=== PATIENT | female | born 1960 | race Caucasian/White ===

== ENCOUNTER 2024-06-11 21:12 | Inpatient (IN) ==
[2024-06-11 22:12] LABS: Basophils # (Auto) 0.04 K/mcL (0.00-0.30); Basophils % (Auto) 0.4 % (0.0-2.0); Eosinophils # (Auto) 0.09 K/mcL (0.00-0.70); Eosinophils % (Auto) 0.8 % (0.0-7.0); Hematocrit 42.9 % (34.1-44.9); Hemoglobin 13.8 g/dL (11.2-15.7); Lymphocytes # (Auto) 0.79 K/mcL (1.50-4.80); Lymphocytes % (Auto) 7.3 % (15.5-49.0); Mean Cell Volume 101.9 fL (80.0-100.0); Mean Corpuscular HGB Conc 32.2 g/dL (31.0-36.0); Mean Platelet Volume 9.2 fL (8.8-12.5); Monocytes # (Auto) 1.52 K/mcL (0.10-0.90); Monocytes % (Auto) 14.1 % (1.0-12.0); Platelet Count 189 K/mcL (140-440); RBC 4.21 M/mcL (3.59-5.38); Red Cell Distribution Width 13.8 % (11.5-14.5); WBC 10.8 K/mcL (4.5-11.0)
[2024-06-11] MEDS: HYDROmorphone 0.5 MG/0.5 ML SYRINGE IV PRN (22:13)
[2024-06-11] MEDS: ONDANSETRON 4 MG/2 ML VIAL IV ONE (22:14)
[2024-06-11 22:28] LABS: ALT/SGPT 24 U/L (<40); AST/SGOT 44 U/L (<32); Albumin 3.3 gm/dL (3.2-5.2); Alkaline Phosphatase 136 U/L (39-117); Bilirubin,Total 0.4 mg/dL (0.1-1.0); Blood Urea Nitrogen 10 mg/dL (8-23); Calcium 9.6 mg/dL (8.6-10.4); Carbon Dioxide 14 mmol/L (22-30); Chloride 100 mmol/L (96-108); Globulin 3.3 gm/dL (2.2-3.7); Glomerular Filtration Rate 103; Glucose 63 mg/dL (70-105); Potassium 3.7 mmol/L (3.3-5.1); Sodium 138 mmol/L (133-145)
[2024-06-11] MEDS ORDERED: ONDANSETRON 4 MG/2 ML VIAL IV PRN (23:04)
[2024-06-11] MEDS: ALBUTEROL SULFATE 2.5 MG/3 ML NEBULIZER NEB PRN (23:22)
[2024-06-12] MEDS: oxyCODONE/APAP 5/325MG TABLET PO PRN (02:30)
[2024-06-12] MEDS: HYDROmorphone 0.5 MG/0.5 ML SYRINGE IV PRN ×2 (02:31→10:58)
[2024-06-12] MEDS: 0.9 % SODIUM CHLORIDE 10 ML SYRINGE IV SCH (04:31)
[2024-06-12] MEDS: DOCUSATE SODIUM 100 MG CAPSULE PO SCH (08:38)
[2024-06-12] MEDS ORDERED: HYDROmorphone 0.5 MG/0.5 ML SYRINGE IV PRN (09:03)
[2024-06-12] MEDS: fentaNYL 25 MCG PATCH TOPICAL SCH (10:02)
[2024-06-12] MEDS: OLANZapine 2.5 MG TABLET PO SCH (10:04)
[2024-06-12] MEDS: OMEPRAZOLE 20 MG CAPSULE PO SCH (11:02)
[2024-06-12] MEDS: SODIUM BICARBONATE 650 MG TABLET PO SCH (11:02)
[2024-06-12] MEDS: METHOCARBAMOL 750 MG TABLET PO PRN (13:53)
[2024-06-12] MEDS: HYDROmorphone 2 MG TABLET PO PRN (13:54)
[2024-06-12] MEDS: FLUTICASONE PROPION SALMETEROL INHALATION SCH (16:02)
[2024-06-12] MEDS: 0.9 % SODIUM CHLORIDE 250 ML IV SCH (17:14)
[2024-06-12] MEDS: SENNOSIDES 1 TABLET PO SCH (20:08)
[2024-06-13 06:34] LABS: ALT/SGPT 19 U/L (<40); AST/SGOT 36 U/L (<32); Albumin 3.1 gm/dL (3.2-5.2); Alkaline Phosphatase 133 U/L (39-117); Bilirubin,Direct < 0.2 mg/dL (0-0.3); Bilirubin,Total 0.3 mg/dL (0.1-1.0); Blood Urea Nitrogen 11 mg/dL (8-23); Calcium 9.7 mg/dL (8.6-10.4); Carbon Dioxide 21 mmol/L (22-30); Chloride 105 mmol/L (96-108); Globulin 3.2 gm/dL (2.2-3.7); Glomerular Filtration Rate 103; Glucose 145 mg/dL (70-105); Lactate Dehydrogenase 450 U/L (135-225); Phosphorous 2.4 mg/dL (2.5-4.5); Sodium 142 mmol/L (133-145); Triglycerides 192 mg/dL (<150); Uric Acid 6.1 mg/dL (2.5-8.0)
[2024-06-13] MEDS: LIDOCAINE 4% TOP PATCH TOPICAL SCH (10:14)
[2024-06-13] MEDS: Tiotropium Bromide [Spiriva Respimat] 2.5 mcg/act Inhaler INH SCH (10:25)
[2024-06-13] MEDS ORDERED: HYDROmorphone 0.5 MG/0.5 ML SYRINGE IV PRN (11:35)
[2024-06-13] MEDS: hydrOXYzine 25 MG TABLET PO PRN (11:40)
[2024-06-13] MEDS: HYDROmorphone 0.5 MG/0.5 ML SYRINGE IV PRN (12:19)
[2024-06-14 06:26] LABS: ALT/SGPT 17 U/L (<40); AST/SGOT 33 U/L (<32); Albumin 3.1 gm/dL (3.2-5.2); Albumin/Globulin Ratio 1.1 (1.0-2.3); Alkaline Phosphatase 123 U/L (39-117); Bilirubin,Direct < 0.2 mg/dL (0-0.3); Bilirubin,Total 0.4 mg/dL (0.1-1.0); Blood Urea Nitrogen 14 mg/dL (8-23); Calcium 9.2 mg/dL (8.6-10.4); Carbon Dioxide 28 mmol/L (22-30); Chloride 106 mmol/L (96-108); Globulin 2.8 gm/dL (2.2-3.7); Glomerular Filtration Rate 111; Glucose 159 mg/dL (70-105); Lactate Dehydrogenase 409 U/L (135-225); Phosphorous 2.2 mg/dL (2.5-4.5); Potassium 3.6 mmol/L (3.3-5.1); Sodium 144 mmol/L (133-145); Triglycerides 151 mg/dL (<150); Uric Acid 3.7 mg/dL (2.5-8.0)
[2024-06-14] MEDS: HYDROmorphone 2 MG TABLET PO PRN (10:22)
[2024-06-14] MEDS: 0.9 % SODIUM CHLORIDE 1,000 ML IV ONE (19:59)
[2024-06-15] MEDS: fentaNYL 50 MCG PATCH TOPICAL SCH (11:45)
[2024-06-15] MEDS ORDERED: ONDANSETRON 4 MG/2 ML VIAL IV PRN (13:20)
[2024-06-15] MEDS ORDERED: POLYETHYLENE GLYCOL 3350 17 GM PACKET PO PRN (13:20)
[2024-06-15] MEDS ORDERED: ALBUTEROL SULFATE 2.5 MG/3 ML NEBULIZER NEB PRN (13:20)
[2024-06-15] MEDS: morphine 4 MG/ML VIAL IV PRN (15:26)
[2024-06-15] MEDS: 0.9 % SODIUM CHLORIDE 10 ML SYRINGE IV SCH (15:30)
[2024-06-15] MEDS: LORazepam 2 MG/ML VIAL IV PRN (15:44)
[2024-06-16] MEDS: IPRATROPIUM/ALBUTEROL 3 ML AMPUL.NEB NEB SCH (11:51)
[2024-06-17] MEDS: GLYCOPYRROLATE 0.2 MG/ML VIAL IV SCH (11:38)
[2024-06-17] MEDS: LORazepam 2 MG/ML VIAL IV PRN (15:45)
== END 2024-06-18 21:18 | disposition expired | DRG 948 ==
LOC: ED 21:12 → MEDSUR 23:39
PROVIDERS: ADMIT Internal Medicine; ATTEND Internal Medicine